=== PATIENT | female | born 1970 | race Caucasian/White ===

== ENCOUNTER 2022-02-15 12:39 | Emergency (ER) | payer OTHER, SELFPAY ==
[2022-02-15 13:23] VITALS: BP 147/85; PULSE 87; RESP 17; TEMP 36.9; O2SAT 100
[2022-02-15 13:46] LABS: Appearance Urine Clear (Clear); Basophils Absolute Auto 0.1 K/mm3 (0.0-0.1); Bilirubin Urine Negative (Negative); Blood Urine 1+ (Negative); Color Urine Yellow (Yellow); Eosinophils Absolute Auto 0.1 K/mm3 (0-0.3); Eosinophils Percent Auto 0.8 % (0-4.4); Glucose Urine UA Negative (Negative); Hematocrit 36.2 % (37.0-47.0); Hemoglobin 11.8 g/dL (12.0-15.0); Immature Granulocyte Absolute 0.02 K/mm3 (0.00-0.031); Immature Granulocyte Percent A 0.2 % (0-0.5); Ketones Urine Negative (Negative); Leukocyte Esterase Ur Negative LEU/UL (Negative); Lymphocytes Absolute Auto 1.42 K/mm3 (0.9-3.2); Lymphocytes Percent Auto 15.4 % (18.3-44.2); Mean Corpuscular HGB Conc 32.6 g/dl (32-36); Mean Corpuscular Hemoglobin 31.1 pg (26-34); Mean Corpuscular Volume 95.5 fl (80-100); Mean Platelet Volume 9.9 fl (7.4-10.4); Monocytes Absolute Auto 0.6 K/mm3 (0.1-0.6); Monocytes Percent Auto 6.8 % (2.6-8.5); Neutrophils Percent Auto 75.8 % (45.5-73.1); Nitrate Urine Negative (Negative); Platelet Count Result 360 k/mm3 (150-375); Protein Urine Negative (Negative); Red Blood Count 3.79 M/mm3 (4.2-5.4); Red Cell Distribution Width 12.6 % (11.5-14.5); Urobilinogen Urine 0.2 mg/dL (<2.0); White Blood Count 9.2 K/mm3 (4.5-10.0)
[2022-02-15 13:53] LABS: Bacteria Urine Trace /hpf; Mucus Urine Rare /lpf; RBC Urine 0-2 /hpf (0-2); Squamous Epithelial Cell Urine Rare /hpf (Few); WBC Urine 0-3 /hpf
[2022-02-15 13:55] LABS: Add Urine Microscopic? YES
[2022-02-15 13:57] LABS: Alanine Aminotransferase 21 U/L (6-35); Albumin Level 4.4 g/dL (3.5-5.1); Alkaline Phosphatase 74 U/L (38-126); Anion Gap 11 mmol/L (8-16); Aspartate Amino Transferase 25 U/L (14-36); Bilirubin,Total 0.4 mg/dL (0.2-1.3); Blood Urea Nitrogen 12 mg/dL (7-17); Calcium 9.4 mg/dL (8.4-10.2); Carbon Dioxide 25 mmol/L (22-30); Chloride 102 mmol/L (98-107); Estimated CRCL calculation 87 ml/min; Estimated Glomerular Filt Rate > 60; Glucose 91 mg/dL (65-110); Lipase 77 U/L (23-300); Potassium 4.1 mmol/L (3.4-5.0); Sodium 138 mmol/L (137-145)
[2022-02-15 16:04] VITALS: BP 141/86; PULSE 85; TEMP 37.4; O2SAT 100
--- NOTE | 2022-02-15 19:58 | ED.ABDPAIN ---
HPI - Abdominal Pain General Chief Complaint: Abdominal Pain Stated Complaint: abdominal pain with coffee gound stools Time Seen by Provider: 02/15/22 19:08 History of Present Illness HPI narrative: Patient is a 51-year-old female who presents ER with concerns for coffee grounds in her stool. She was seen at [facility] on 02/13/2022. At that time she was diagnosed with uncomplicated diverticulitis and placed on Augmentin. She was also diagnosed with a right-sided kidney stone and then inflamed ureter. There is no evidence of an obstructive stone. Patient's urinalysis at that time was free and clear of infection. Patient had a creatinine of 0.6. She had a normal white count and H&H. Patient has had no new fevers. She has occasional pain for which she takes ibuprofen it helps. Occasionally she will have some nausea. No diarrhea. Because she had some speckled dark spots in her otherwise normal stool she opted to come to the ER for further evaluation. Related Data Allergies Allergy/AdvReac Type Severity Reaction Status Date / Time No Known Allergies Allergy Unverified 02/15/22 12:40 Review of Systems Review of Systems: All systems reviewed & are unremarkable except as noted in HPI and below Constitutional: Constitutional: Denies chills, Denies fatigue and Denies fever(s) ENT: Denies nasal congestion and Denies sore throat Cardiovascular: Cardiovascular: Denies chest pain and Denies radiating jaw, neck or arm pain Gastrointestinal: Gastrointestinal: Reports abdominal pain, Denies diarrhea, Reports nausea and Denies vomiting Comments: Discolored stool. Genitourinary: Genitourinary: Denies nocturia and Denies dysuria Exam Narrative: GENERAL: Well-appearing, well-nourished, and in no acute distress. HEAD: Normocephalic, atraumatic. CHEST: Clear to auscultation. No respiratory distress. HEART: Regular rate and rhythm. Normal peripheral pulses. ABDOMEN: Soft, nontender, nondistended, normal active bowel sounds. EXTREMITIES: Normal range of motion. No edema. NEURO: Alert and oriented x3. PSYCH: Normal mood and affect. Course Course Emergency Course: Patient showed me a photograph of her stool. Its pale brown with some black specks that are quite infrequent. This does have the appearance of an upper GI bleed. Patient is unsure if she ate anything that could have discolored it. Patient's blood work is normal and stable. Recommend she continue her Augmentin. Recommend follow-up with PCP. She verbalized understanding. Vital Signs Vital signs: Vital Signs Temperature 98.4 F 02/15/22 13:23 Pulse Rate 87 02/15/22 13:23 Respiratory Rate 17 02/15/22 13:23 Blood Pressure 147/85 H 02/15/22 13:23 Pulse Oximetry 100 02/15/22 13:23 Oxygen Delivery Room Air 02/15/22 13:23 Temperature 99.3 F 02/15/22 16:04 Pulse Rate 85 02/15/22 16:04 Respiratory Rate 17 02/15/22 13:23 Blood Pressure 141/86 H 02/15/22 16:04 Pulse Oximetry 100 02/15/22 16:04 Oxygen Delivery Room Air 02/15/22 13:23 MDM - Abdominal Pain Lab Data Result diagrams: 02/15/22 13:37 02/15/22 13:37 Labs: Lab Results 02/15/22 02/15/22 02/15/22 Range/Units 13:37 13:37 13:37 WBC 9.2 (4.5-10.0) K/mm3 RBC 3.79 L (4.2-5.4) M/mm3 Hgb 11.8 L (12.0-15.0) g/dL Hct 36.2 L (37.0-47.0) % MCV 95.5 (80-100) fl MCH 31.1 (26-34) pg MCHC 32.6 (32-36) g/dl RDW 12.6 (11.5-14.5) % Plt Count 360 (150-375) k/mm3 MPV 9.9 (7.4-10.4) fl Immature Gran % (Auto) 0.2 (0-0.5) % Neut % (Auto) 75.8 H (45.5-73.1) % Lymph % (Auto) 15.4 L (18.3-44.2) % Ashe % (Auto) 6.8 (2.6-8.5) % Eos % (Auto) 0.8 (0-4.4) % Baso % (Auto) 1.0 (0.2-1.2) % Lymph # (Auto) 1.42 (0.9-3.2) K/mm3 Ashe # (Auto) 0.6 (0.1-0.6) K/mm3 Eos # (Auto) 0.1 (0-0.3) K/mm3 Baso # (Auto) 0.1 (0.0-0.1) K/mm3 Abs Immat Gran (auto) 0.
[2022-02-15 20:18] VITALS: BP 133/77; PULSE 79; TEMP 36.8; O2SAT 100
== END 2022-02-15 20:21 | disposition home or self-care (01) ==
PROVIDERS: Emergency Medicine; Emergency Provider Emergency Medicine
DX: R19.5 Other fecal abnormalities (principal)
CPT/HCPCS: 36415; 80053; 81001; 81025; 83690; 85025; 99283

== ENCOUNTER 2022-08-02 10:31 | Emergency (ER) | payer OTHER, SELFPAY ==
[2022-08-02 10:50] VITALS: BP 152/93; PULSE 123; RESP 20; TEMP 37.8; O2SAT 98
--- NOTE | 2022-08-02 11:23 | ED.URI ---
HPI - URI/Sore Throat General Chief Complaint: Upper Respiratory Infection Stated Complaint: sorethroat,congestion,bilateral ear pain Source: patient, RN notes reviewed and old records reviewed Mode of arrival: ambulatory Limitations: no limitations History of Present Illness HPI Narrative: 52-year-old female who presents to [facility] with complaints of sore throat which started on Sunday evening with some cough and congestion some fullness of her ears, nausea without vomiting, chills with 102F fever this a.m. Patient did state that she took a home COVID test and it was positive. Patient has not been COVID vaccinated nor has she had flu shot. Patient denies any shortness of breath, respirations are even and nonlabored with SaO2 98% on room air. She reports taking Tylenol or Ibuprofen MD elicited complaint: fever, cough, sore throat, rhinorrhea, nasal congestion and other (Some nausea) Onset (ago): day(s) (day 3 of symptoms) Pain scale (0-10): 8 Able to tolerate fluids by mouth: Yes Treatments prior to arrival: acetaminophen and ibuprofen Related Data Home Medications Medication Instructions Recorded Confirmed lisinopril 20 mg tablet 20 mg PO DAILY 08/02/22 08/02/22 Allergies Allergy/AdvReac Type Severity Reaction Status Date / Time No Known Allergies Allergy Verified 08/02/22 10:48 Review of Systems Review of Systems: CONSTITUTIONAL: Reports malaise, chills, sweats, or fever. EYES: Denies visual changes, redness, or discharge. ENT: Reports rhinorrhea, congestion, sinus pain, bilateral ear pressure and sore throat. CARDIOVASCULAR: Denies chest pain, palpitations, or edema. RESPIRATORY: Reports cough.? Denies dyspnea. GASTROINTESTINAL: Denies abdominal pain,reports some nausea, no vomiting, diarrhea SKIN: Denies rash or itching. MUSCULOSKELETAL:reports myalgia. NEUROLOGIC: Reports headache. All systems reviewed & are unremarkable except as noted in HPI and below PMFSH Past Medical History Medical History (Updated 08/02/22 @ 19:47 by Junie Gonzales NP) COVID-19 07/2020 Diverticulitis Hypertension Kidney stones Surgical History Surgical History (Updated 08/02/22 @ 19:46 by Junie Gonzales NP) H/O shoulder surgery right scapular area trimmed History of tonsillectomy Family History Family History (Updated 08/02/22 @ 19:47 by Junie Gonzales NP) Mother Hypertension Diabetes mellitus Father Emphysema lung Social History Social History (Updated 08/02/22 @ 11:30 by Junie Gonzales NP) Smoking status: Never smoker Alcohol intake: current Alcohol use details: social Substance use type: does not use Gender identity (if verbalized by the patient): Female Comments At time of signature, agree with nursing past medical, surgical, social and family history. There is no relevant family history pertinent to the presenting complaint Exam Narrative: GENERAL: Well-appearing, well-nourished, and in no acute distress. HEAD: Normocephalic EYES: PERRLA, conjunctivae clear ENT: Nares clear, turbinates edematous and erythematous, clear discharge. Mucous membranes moist. TM pearly castillo with dull light reflex bilaterally; no tragal tenderness. Oropharynx erythematous without lesions. Tonsils not present and throat without exudate, no drooling, no hoarseness, no trismus, uvula midline. NECK: Supple. No lymphadenopathy CHEST: Clear to auscultation, breath sounds equal. No wheezing, rhonchi, rales, or stridor. No respiratory distress, speaks in full sentences.cough noted SAO2 98% on room air HEART: Regular rate and rhythm. No murmur heard. SKIN: Warm, dry, no rash. NEURO: Alert and oriented x3. PSYCH: Normal mood and affect Course Course Emergency Course: Patient is aware of diagnosis, understands and agrees to treatment plan.? Anticipatory guidance given.? Patient agrees to follow-up as directed and is aware of reasons to seek care at the emergency depar
== END 2022-08-02 11:42 | disposition home or self-care (01) ==
PROVIDERS: Emergency Provider Registered Nurse
DX: U07.1 COVID-19 (principal); J06.9 Acute upper respiratory infection, unspecified; I10 Essential (primary) hypertension
CPT/HCPCS: 87880; 99213; G0463

== ENCOUNTER 2023-08-24 13:23 | Emergency (ER) | payer OTHER, SELFPAY ==
--- NOTE | ~2023-08-24 | XR_ITS ---
EXAMINATION: XR abdomen/kub 1V INDICATION: Low back pain TECHNIQUE: Supine view of the abdomen is obtained. COMPARISON: None FINDINGS: Bowel gas pattern is normal. There are no dilated loops of bowel. Phleboliths are noted in the left pelvis. IMPRESSION: 1. No radiographic correlate for the patient's symptoms. Reviewed, dictated and finalized at location B. [employer]
--- NOTE | 2023-08-24 13:33 | ED.NAVMDI ---
HPI - Nausea/Vomiting/Diarrhea General Chief complaint: Nausea/Vomiting/Diarrhea Stated complaint: Constipation,Diarrhea Time Seen by Provider: 08/24/23 13:47 Source: patient and RN notes reviewed Mode of arrival: ambulatory Limitations: no limitations History of Present Illness HPI Narrative: 53-year-old female presents with concern for 5 day history of bloating, diarrhea, gas, nausea. She reports symptoms started with constipation, she took a laxative and had subsequent diarrhea. She reports she is having diarrhea and in between having a feeling of not being able to have a bowel movement. She reports she is very bloated and gassy. She is taking Gas-X. Reports she takes Colace and continues to take Colace on a daily basis. She denies fever, body aches, chills, sweats. She denies upper respiratory symptoms. She denies vomiting. She denies dysuria, frequency, urgency. She reports throughout the week she has been eating ?questionable foods such as meat that was thawed and refrozen, salads, seafood. MD elicited complaint: nausea and diarrhea Related Data Home Medications Medication Instructions Recorded Confirmed lisinopril 20 mg tablet 40 mg PO DAILY 08/02/22 08/24/23 cetirizine 10 mg tablet 10 mg PO DAILY 08/24/23 08/24/23 conjugated estrogens 0.625 mg/gram 1 applic topical TID 08/24/23 08/24/23 vaginal cream (Premarin) docusate sodium 100 mg capsule 100 mg PO DAILY 08/24/23 08/24/23 fluticasone propionate 50 2 spray intranasal DAILY 08/24/23 08/24/23 mcg/actuation nasal spray,suspension Allergies Allergy/AdvReac Type Severity Reaction Status Date / Time No Known Allergies Allergy Verified 08/24/23 13:32 Review of Systems Review of Systems: CONSTITUTIONAL: Denies malaise, chills, sweats, or fever. ENT: Denies rhinorrhea, congestion, sinus pain, otalgia or sore throat. CARDIOVASCULAR: Denies chest pain, palpitations, or edema. RESPIRATORY: Denies cough or dyspnea. GASTROINTESTINAL: Denies abdominal pain. Reports bloating, nausea, diarrhea GENITOURINARY: Denies dysuria or hematuria. MUSCULOSKELETAL: Denies myalgia. NEUROLOGIC: Denies headache. All systems reviewed & are unremarkable except as noted in HPI and below PMFSH Past Medical History Medical History (Updated 08/24/23 @ 14:24 by Briana Mccallum NP) COVID-19 07/2020 Diverticulitis Hypertension Kidney stones Surgical History Surgical History (Updated 08/02/22 @ 19:46 by Junie Gonzales NP) H/O shoulder surgery right scapular area trimmed History of tonsillectomy Family History Family History (Updated 08/02/22 @ 19:47 by Junie Gonzales NP) Mother Hypertension Diabetes mellitus Father Emphysema lung Social History Social History (Updated 08/02/22 @ 11:30 by Junie Gonzales NP) Smoking status: Never smoker Alcohol intake: current Alcohol use details: social Substance use type: does not use Gender identity (if verbalized by the patient): Female Comments At time of signature, agree with nursing past medical, surgical, social and family history. There is no relevant family history pertinent to the presenting complaint Exam Narrative: GENERAL: Nontoxic-appearing, well-nourished, and in no acute distress. HEAD: Normocephalic, atraumatic. EYES: PERRLA, conjunctivae clear, and EOMI. ENT: Nares clear. Mucous membranes moist. NECK: Supple. No lymphadenopathy CHEST: Speaks in full sentences. No respiratory distress. HEART: Regular rate and rhythm. ABDOMEN: Soft, nondistended, nontender. No guarding, rebound tenderness, or rigidity. Bowel sounds present in all four quadrants. SKIN: Warm, dry, no rash. NEURO: Alert and oriented x3. PSYCH: Normal mood and affect Course Course Emergency Course: Patient is aware of diagnosis, understands and agrees to treatment plan. Anticipatory guidance given. Patient agrees to follow-up as directed and is aware of reasons to seek care at the emergency
[2023-08-24 13:36] VITALS: BP 139/83; PULSE 92; RESP 18; TEMP 36.9; O2SAT 99
== END 2023-08-24 14:27 | disposition home or self-care (01) ==
PROVIDERS: Emergency Provider Nurse Practitioner
DX: R19.7 Diarrhea, unspecified (principal); I10 Essential (primary) hypertension; Z86.16 Personal history of COVID-19
CPT/HCPCS: 74018; 99213; G0463